=== PATIENT | female | born 1980 | race Caucasian/White ===

== ENCOUNTER 2021-05-30 15:48 | Outpatient (CLI) | payer BC | END 2021-05-30 15:49 | disposition home or self-care (01) | LOC: CSHMAMMO 15:48 | PROVIDERS: ATTEND Obstetrics & Gynecology | DX: Z12.31 Encounter for screening mammogram for malignant neoplasm of breast (principal); R92.1 Mammographic calcification found on diagnostic imaging of breast; N63.11 Unspecified lump in the right breast, upper outer quadrant | CPT/HCPCS: 77063; 77067 ==

== ENCOUNTER 2021-06-04 13:20 | Outpatient (CLI) | payer BC | END 2021-06-04 13:21 | disposition home or self-care (01) | LOC: CSHMAMMO 13:20 | PROVIDERS: ATTEND Obstetrics & Gynecology | DX: R92.8 Other abnormal and inconclusive findings on diagnostic imaging of breast (principal); R92.1 Mammographic calcification found on diagnostic imaging of breast | CPT/HCPCS: G0279 ==

== ENCOUNTER 2021-08-29 13:35 | Outpatient (CLI) | payer OTHER ==
[2021-08-29 15:01] LABS: ALT (SGPT) 31 U/L (8-55); AST (SGOT) 25 U/L (5-34); Albumin 4.5 g/dL (3.5-5.0); Alkaline Phosphatase 77 U/L (40-110); Anion Gap 16 mmol/L (10-20); BUN (Urea Nitrogen) 10 mg/dL (7.0-18.7); Bilirubin, Total 1.1 mg/dL (0.2-1.2); Calc. Creatinine Clearance 0 mL/min (70-130); Calcium 9.9 mg/dL (7.8-10.44); Carbon Dioxide 25 mmol/L (22-29); Chloride 101 mmol/L (98-107); Glucose 103 mg/dL (70-105); Potassium 4.1 mmol/L (3.5-5.1); Protein, Total 7.5 g/dL (6.0-8.3); Sodium 138 mmol/L (136-145)
[2021-08-29 15:06] LABS: #Basophils 0.1 10x3/uL (0.0-0.2); #Eosinphils 0.2 10x3/uL (0.0-0.5); #Monocytes 0.6 10x3/uL (0.0-1.1); %Basophils 0.6 % (0.0-2.0); %Eosinophils 1.5 % (0.0-6.0); %Lymphocytes 27.9 % (18.0-47.0); %Monocytes 5.2 % (0.0-10.0); %Neutrophils 64.5 % (40.0-75.0); Hemoglobin 12.9 g/dL (12.0-15.5); Mean Corpuscular HGB CONC 33.8 g/dL (32.0-36.0); Mean Corpuscular Hemoglobin 29.3 pg (27.0-33.0); Mean Corpuscular Volume 86.6 fl (81.6-98.3); Mean Platelet Volume 9.4 fl (7.4-10.4); Platelet Count 376 10x3/uL (150-450); RBC Distribution Width 12.1 % (11.5-14.5); Red Blood Cell (RBC) Count 4.41 10x6/uL (3.90-5.03); White Blood Cell (WBC) Count 10.9 10x3/uL (3.5-10.5)
[2021-08-29 15:32] LABS: INR-International Normal Ratio 0.9; PTT 28.2 sec (22.0-33.0); Prothrombin Time 9.9 sec (9.5-12.1)
== END 2021-08-29 13:36 | disposition home or self-care (01) ==
LOC: CSHRAD 13:35
PROVIDERS: ATTEND Surgery Plastic and Reconstructive Surgery
DX: C50.912 Malignant neoplasm of unspecified site of left female breast (principal)
CPT/HCPCS: 71045; 80053; 85025; 85610; 85730; 93005; 93010

== ENCOUNTER 2022-03-28 16:53 | Outpatient (CLI) | payer OTHER ==
[2022-03-28 18:26] LABS: Hemoglobin 12.7 g/dL (12.0-15.5); Mean Corpuscular HGB CONC 34.2 g/dL (32.0-36.0); Mean Corpuscular Hemoglobin 30.3 pg (27.0-33.0); Mean Corpuscular Volume 88.5 fl (81.6-98.3); Platelet Count 352 10x3/uL (150-450); RBC Distribution Width 12.6 % (11.5-14.5); Red Blood Cell (RBC) Count 4.19 10x6/uL (3.90-5.03); White Blood Cell (WBC) Count 11.6 10x3/uL (3.5-10.5)
[2022-03-28 18:52] LABS: Anion Gap 14 mmol/L (10-20); BUN (Urea Nitrogen) 18 mg/dL (7.0-18.7); Calc. Creatinine Clearance 0 mL/min (70-130); Calcium 9.7 mg/dL (7.8-10.44); Carbon Dioxide 25 mmol/L (22-29); Chloride 105 mmol/L (98-107); Estimated GFR 111; Glucose 103 mg/dL (70-105); Potassium 4.5 mmol/L (3.5-5.1); Sodium 139 mmol/L (136-145)
[2022-03-28 18:53] LABS: BHCG - Serum Negative (NEGATIVE); Pregs Control Background? CLEAR/WHITE (CLR/WHITE); Pregs Control Bar Appear? YES (CONTROL BAR)
== END 2022-03-28 16:54 | disposition home or self-care (01) ==
LOC: CSHLAB 16:53
PROVIDERS: ATTEND Obstetrics & Gynecology
DX: Z01.812 Encounter for preprocedural laboratory examination (principal); N92.0 Excessive and frequent menstruation with regular cycle; N94.6 Dysmenorrhea, unspecified
CPT/HCPCS: 80048; 84703; 85027

== ENCOUNTER 2022-04-01 05:51 | Day surgery (SDC) | payer OTHER ==
[2022-03-28 16:16] VITALS: BMI 25.4
[2022-04-01] MEDS ORDERED: CEFAZOLIN 2 GM VIAL ONE (06:58)
[2022-04-01] MEDS ORDERED: PROPOFOL 20 ML ONE (07:05)
[2022-04-01] MEDS ORDERED: Fentanyl 100 MCG/2 ML VIAL ONE (07:05)
[2022-04-01] MEDS ORDERED: Midazolam HCl 2 mg/2 ml Vial ONE (07:06)
[2022-04-01] MEDS ORDERED: Ketorolac Tromethamine 30 MG/ML VIAL ONE (07:17)
[2022-04-01] MEDS ORDERED: Dexamethasone 4 mg/ml Vial ONE (07:17)
[2022-04-01] MEDS ORDERED: Ondansetron PF 4 MG/2 ML Vial ONE (07:17)
== END 2022-04-01 09:05 | disposition home or self-care (01) ==
LOC: CSHSDC 05:51
PROVIDERS: ATTEND Obstetrics & Gynecology
PROC: 0UDB8ZZ Extraction of Endometrium, Via Natural or Artificial Opening Endoscopic (ICD-10-PCS; principal; 2022-04-01)
PROC: 0U5B8ZZ Destruction of Endometrium, Via Natural or Artificial Opening Endoscopic (ICD-10-PCS; principal; 2022-04-01)
DX: N92.0 Excessive and frequent menstruation with regular cycle (principal); N94.6 Dysmenorrhea, unspecified; N83.202 Unspecified ovarian cyst, left side; N83.201 Unspecified ovarian cyst, right side; Z85.3 Personal history of malignant neoplasm of breast; Z90.10 Acquired absence of unspecified breast and nipple; Z98.890 Other specified postprocedural states
CPT/HCPCS: 88305; J1100; J1885; J2250; J2405; J2704; J3010